=== PATIENT | female | born 1950 | race Caucasian/White ===

== ENCOUNTER 2024-07-30 09:27 | Inpatient (IN) | payer MEDICARE, SELFPAY ==
[2024-07-30] VITALS (18 sets, daily range): BP systolic 93–129; BP diastolic 62–89; PULSE 99–144; RESP 18–60; TEMP 36.4–37.5; O2SAT 89–100; BMI 12.9; BMI 13.0
--- OUTSIDE RECORDS SUMMARY | 2024-07-30 09:29 | XMS_ITS | Clinical Summary ---
Author Organization [employer] [facility] Address [place], [place] [address] Care Team Providers Care Watch Mechanic Name Role Phone Votel, Siddharth Barbour MD Primary Care Provider + Allergies No known active allergies Medications No known medications Immunizations Name Administration Dates Next Due AMB INFLUENZA IIV3 (AGE 65+ YRS) PF (Flu Clinic Only) 03/16/2018 Social History Tobacco Use Types Packs/Day Years Used Date Smoking Tobacco: Never Alcohol Use Standard Drinks/Week Comments No 0 (1 standard drink = 0.6 oz pur e alcohol) Comments Unknown Sex and Gender Information Value Date Recorded Sex Assigned at Not on file 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 Gender Identity Not on file Sexual Orientation Not on file Obstetrics History Last Filed Vital Signs Vital Sign Reading Time Taken Comments Blood Pressure 138/90 02/02/2009 9:35 AM CDT Pulse 77 02/02/2009 9:35 AM CDT Temperature - - Respiratory Rate - - Oxygen Saturation 98% 02/02/2009 9:35 AM CDT Inhaled Oxygen Concentration - - Weight 49.9 kg (110 lb) 02/02/2009 9:35 AM CDT Height - - Body Mass Index - - Plan of Treatment Health Maintenance Due Date Last Done Comments Tdap 01/26/1963 Depression screening for age 12+ 1964 BMI (ht and wt on same day) for age 18+ 01/26/1970 Hepatitis C screening for age 18-79 01/26/1970 Tetanus booster 1972 Colonoscopy through age 75 01/26/1997 Lipids for age 45-75 01/26/1997 Pneumococcal series for age 50+ (1 of 1 - PCV) 01/26/2002 Zoster (shingles) series for age 50+ (1 of 2) 01/26/2002 Mammogram for age 45-75 10/18/2008 10/19/2007, 10/14 DEXA/DXA scan for age 65+ 01/26/2017 COVID-19 vaccine series (1 - 2023-25 season) 2024 Influenza for age 65+ 02/14/2024 03/16/2018 RSV vaccine for adults or pr egnancy (1 - 1-dose 75+ series) 01/26/2027 Procedures Procedure Name Priority Date/Time Associated Diagnosis Comments XR FFDM MAMMO UNI ADDL VIEWS RIGHT (IA) Routine 10/19/2007 3:36 PM CDT Abnormal Mammogram from Last 3 Months or Most Recently Relevant to Health Maintenance Results * XR FFDM MAMMO UNI ADDL VIEWS RIGHT (10/19/2007 3:36 PM CDT) MAMMOGRAM ACR 0 Incomplete: Additional imaging evaluation needed Anatomical Region Laterality Modality BREASTS, Breast Right Right Mammograph y 10/19/2007 3:36 PM CDT Narrative 10/19/2007 3:43 PM CDT ADDITIONAL VIEWS RIGHT BREAST CLINICAL HISTORY: Questionable area of architectural distortion 12:00 position of the right mid-breast on screening study dated 10/15/07. Spot compression CC, spot compression MLO and true lateral views of the right breast were performed. FINDINGS: The examination demonstrates a focal rounded area of increased parenchymal density at the 12:00 position but no architectural distortion is evident. Vascular calcification is seen. CONCLUSION: ACR 0 Incomplete: Additional imaging evaluation needed RECOMMENDATION: Ultrasound of the right breast at the 12:00 position approximately 2.0 cm deep to the nipple. Procedure Note Maciej Buenrostro - 10/19/2007 ADDITIONAL VIEWS RIGHT BREAST CLINICAL HISTORY: Questionable area of architectural distortion 12:00position of the right mid-breast on screening study dated 10/15/07. Spot compression CC, spot compression MLO and true lateral views of theright breast were performed. FINDINGS: The examination demonstrates a focal rounded area of increasedparenchymal density at the 12:00 position but no architectural distortionis evident. Vascular calcification is seen. CONCLUSION: ACR 0 Incomplete: Additional imaging evaluation needed RECOMMENDATION: Ultrasound of the right breast at the 12:00 positionapproximately 2.0 cm deep to the nipple. Siddharth Berkowitz MD MAMMO Final Re sult from Last 3 Months or Most Recently Relevant to Health Maintenance Insurance MEDICARE [place] ONLY Care Teams Watch Mechanic Relationship Specialty Start Date End Date DixonteSiddharth shahid MD [address] [place] [address] PCP - General 10/14/07
--- OUTSIDE RECORDS SUMMARY | 2024-07-30 10:06 | XMS_ITS | Clinical Summary ---
Author Organization [employer] 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
[2024-07-30 10:24] LABS: HCO3 VBG 37 mmol/L (21-28); PCO2 VBG 56 mmHG (40-50); PO2 VBG 35.5 mmHG (25-47); pH VBG 7.424 (7.32-7.43)
[2024-07-30 10:27] LABS: PCR FLU A Negative PCR FLU A (Negative); PCR FLU B Negative PCR FLU B (Negative); PCR RSV Negative PCR RSV (Negative); SARS PCR* Negative SARS-CoV-2 (Negative)
[2024-07-30 10:33] LABS: Basophils Percent Auto 0.2 % (0.0-3.0); Eosinophils Percent Auto 0.6 % (0.0-7.0); Hemoglobin* 9.8 gm/dL (12.0-16.0); Immature Granulocytes Pct Auto 0.9 %; Lymphocytes Percent Auto 6.4 % (20-44); Mean Corpuscular HGB Conc 32 gm/dL (32-36); Mean Corpuscular Hemoglobin 28 pg (26-34); Mean Corpuscular Volume 88 fL (80-100); Monocytes Percent Auto 6.4 % (0.0-11.0); Neutrophils Percent Auto 85.5 % (42.0-72.0); Platelet Count* 640 K/uL (140-440); RDW Coefficient of Variation % 13.6 % (11.5-15.5); Red Blood Count 3.52 m/uL (4.00-5.20); White Blood Count* 11.18 K/uL (4.50-11.00)
[2024-07-30 10:34] LABS: Slide Review Reflex No
[2024-07-30 10:37] LABS: Albumin* 3.7 g/dL (3.3-5.0)
[2024-07-30 10:38] LABS: Chloride* 88 mmol/L (96-114); Sodium* 134 mmol/L (135-149)
[2024-07-30 10:39] LABS: INR 1.06 (0.91-1.10); Prothrombin Time 14.5 Seconds
[2024-07-30 10:40] LABS: Anion Gap 10 mEq/L (7-15); Bilirubin Direct* 0.5 mg/dL (0.0-0.5); Bilirubin Total* 1.1 mg/dL (0.1-1.5); Carbon Dioxide* 36 mmol/L (20-32); Creatinine* 1.1 mg/dL (0.5-1.5); Est. Creatinine Clearance* 24.83; Estimated Glomerular Filt Rate 53 ml/min; Partial Thromboplastin Time* 29 Seconds (23-33)
--- NOTE | 2024-07-30 10:40 | ED.SOB ---
HPI - SOB/Dyspnea General Date Seen: 07/30/24 Chief Complaint: Cough Stated Complaint: cough, diff walking Time Seen by Provider: 07/30/24 09:32 Source: patient and family Mode of arrival: ambulatory Limitations: no limitations History of Present Illness HPI Narrative: Patient is a 74-year-old female who presents here for evaluation of shortness of breath this had been progressive, over the past 2-3 months, she is very hard hearing, and the history is through her family who she lives with. Along with her. Today it just become too short of breath, and they thought that she should be brought into the emergency room to be seen. She is not on chronic oxygen, no past history of any pulmonary or cardiac issues, but has lost approximately 25 lb in the preceding 2-3 months. Has not seen a physician at all the last time she saw 1 was maybe 3 -4 years ago, and has no primary care physician. Denies any hemoptysis, chest pain, leg swelling, wheezing. She has not had a history of smoking, no history of malignancy, she is on no medications and has no known allergies. She admits to me that she does not really have an appetite has not really eaten anything at all today, or yesterday. Is drinking fluids. No history of fevers chills or sweats viral URI type symptoms that may be superimposed on this. Related Data Home oxygen amount: none Home Medications ?Medication ?Instructions ?Recorded ?Confirmed No Known Home Medications 07/30/24 07/30/24 Allergies Allergy/AdvReac Type Severity Reaction Status Date / Time No Known Drug Allergies Allergy Verified 07/30/24 10:41 Review of Systems Status of ROS: Reports: 10 or more systems reviewed and unremarkable except as noted in History and below Exam Narrative: Exam Narrative: On examination in room 8, she is in no apparent distress she is somewhat hard to understand because of her edentulous nature. Very cachectic, Pupils equal round reactive to light there is no scleral icterus redness TMs are normal oropharynx normal there is no adenopathy anterior posterior chains, JVP flat, chest shows obvious scoliosis convex left. No tenderness to palpation, she has no dullness to percussion, or positive tactile fremitus no signs of respiratory distress, she is on 2-3 L currently of oxygen. Heart sounds no clicks murmurs or gallops, otherwise normal S1-S2, her abdomen is soft and obese, scars from previous lower midline incision she tells me is from a twisted bowel when she was young. She has another incision lower down more of a Pfannenstiel type lower legs show no pitting edema swelling she is neurologically intact moving her upper lower extremities, cranial nerves 3-12 are otherwise normal. Skin reveals no petechiae rashes she has normal pulses. Const: Vital Signs, click to edit/add: Vital Signs - 24 hr 07/30/24 09:31 07/30/24 09:47 07/30/24 10:00 Temperature 98.0 F Pulse Rate 118 H Pulse Rate [Pulse Oximeter] 144 H Respiratory Rate 60 H 32 H Blood Pressure [Ri ght Upper Arm] 114/62 Pulse Oximetry 89 98 99 Oxygen Delivery Me thod Room Air Nasal Cannula Nasal Cannula Oxygen Flow Rate 3 2 07/30/24 10:15 07/30/24 10:19 07/30/24 10:19 Temperature Pulse Rate 111 H Pulse Rate [Pulse Oximeter] Respiratory Rate Blood Pressure [Ri ght Upper Arm] Pulse Oximetry 97 95 Oxygen Delivery Me thod Nasal Cannula Nasal Cannula Nasal Cannula Oxygen Flow Rate 2 2 2 07/30/24 10:32 07/30/24 10:45 07/30/24 11:16 Temperature Pulse Rate 105 H 122 H Pulse Rate [Pulse Oximeter] Respiratory Rate Blood Pressure [Ri ght Upper Arm] Pulse Oximetry 98 90 Oxygen Delivery Me thod Nasal Cannula Nasal Cannula Oxygen Flow Rate 2 2 07/30/24 11:20 07/30/24 11:21 07/30/24 11:54 Temperature Pulse Rate Pulse Rate [Pulse Oximeter] 124 H 112 H 100 Respiratory Rate 30 H 24 Blood Pressure [Ri ght Upper Arm] Pulse Oximetry 95 95 100 Oxygen Delivery Me thod Nasal Cannula Nasal Cannula Nasal Cannula Oxygen Flow Rate 2 2 1 Course Course ED Course: I went back in and discussed with her and her family, after discussion she has vehemently DNR DNI, and this is agreed upon by her family also. She our ever will take treatment, and reluctantly somewhat to come into the hospital. I recommend antibiotics, nebulizers, potassium replacement, IV fluids, dietary consult, in further workup for a possible malignancy, along with nutritional concerns. She does not have a smoking history, no history of severe lung disease or exposure, and does not keep birds or any other possibilities a lease locally, no significant travel history also. I think it is reasonable and appropriate for her to stay here in [place]. I discussed this with Dr. Johnson from [facility] Vital Signs Vital signs: Initial Vital Signs Temperature 98.0 F 07/30/24 09:31 Temperature Source Temporal Artery Scan 07/30/24 09:31 Pulse Rate 144 H 07/30/24 09:31 Respiratory Rate 60 H 07/30/24 09:31 Blood Pressure 114/62 07/30/24 09:31 Blood Pressure Mean 79 07/30/24 09:31 Pulse Oximetry 89 07/30/24 09:31 Oxygen Delivery Method Room Air 07/30/24 09:31 Vital Signs Temperature 98.0 F 07/30/24 09:31 Pulse Rate 144 H 07/30/24 09:31 Respiratory Rate 60 H 07/30/24 09:31 Blood Pressure 114/62 07/30/24 09:31 Pulse Oximetry 89 07/30/24 09:31 Oxygen Delivery Method Room Air 07/30/24 09:31 Temperature 98.0 F 07/30/24 09:31 Pulse Rate 100 07/30/24 11:54 Respiratory Rate 24 07/30/24 11:54 Blood Pressure 114/62 07/30/24 09:31 Pulse Oximetry 100 07/30/24 11:54 Oxygen Delivery Method Nasal Cannula 07/30/24 11:54 Oxygen Flow Rate 1 07/30/24 11:54 Medications Administered Medications: Discontinued Medications Generic Name Dose Route Start Last Admin Trade Name Freq PRN Reason Stop Dose Admin Albuterol/Ipratropium 1 neb 07/30/24 11:41 07/30/24 11:49 Iprat-Albut 0.5-2.5 Mg/3 Ml Neb IH 07/30/24 11:42 1 neb ONCE ONE Administration Sodium Chloride 1,000 mls @ 1,000 mls/hr 07/30/24 11:00 07/30/24 11:18 0.9 % Sodium Chloride 1000 Ml IV 07/30/24 11:59 1,000 mls/hr .Q1H ZANE Administration Potassium Chloride 10 meq in 100 mls @ 100 mls/hr 07/30/24 10:57 07/30/24 11:18 Potassium Chloride IVPB 07/30/24 11:56 100 mls/hr ONCE ONE Administration Piperacillin Sod/Tazobactam 100 mls @ 200 mls/hr 07/30/24 11:41 07/30/24 11:48 Sod 3.375 gm/ Sodium Chloride IVPB 07/30/24 11:42 200 mls/hr ONCE ONE Administration Potassium Chloride 20 meq 07/30/24 10:57 07/30/24 11:18 Potassium Chloride 10 Meq Capsule Er PO 07/30/24 10:58 20 meq ONCE ONE Administration MDM - SOB/Dyspnea MDM Narrative Medical decision making narrative: Life-threatening differential diagnosis includes occluded COPD exacerbation, pulmonary edema, acute coronary syndromes, pulmonary embolism, pneumonia, and pneumothorax. Other differential diagnosis considerations include asthma, bronchitis as well as other etiologies I think the likelihood of malignancy is very high and this lady, we will do some labs, I will also do a chest x-ray, I reviewed the chest x-ray which shows multiple right-sided areas consistent with malignancy, she will need a CT scan of her chest once we get her creatinine back, we will do it with contrast Differential Diagnosis Differential diagnosis: Likely acute exacerbation of chronic obstructive airways disease, congestive heart failure, community acquired pneumonia, asthma with exacerbation and pulmonary embolism Medical Records Attestation: I reviewed the patient's medical records. Lab Data Attestation: I reviewed the patient's lab results. Labs: Lab Results 07/30/24 07/30/24 Range/Units 09:42 10:10 WBC 11.18 H (4.50-11.00) K/uL RBC 3.52 L (4.00-5.20) m/uL Hgb 9.8 L (12.0-16.0) gm/dL Hct 31.0 L (33.0-51.0) % MCV 88 (80-100) fL MCH 28 (26-34) pg MCHC 32 (32-36) gm/dL RDW Coeff of Delphine 13.6 (11.5-15.5) % Plt Count 640 H (140-440) K/uL Neut % (Auto) 85.5 H (42.0-72.0) % Lymph % (Auto) 6.4 L (20-44) % Morgan % (Auto) 6.4 (0.0-11.0) % Eos % (Auto) 0.6 (0.0-7.0) % Baso % (Auto) 0.2 (0.0-3.0) % Neut # (Auto) 9.60 H (1.7-7.0) K/uL Lymph # (Auto) 0.70 L (0.90-2.90) K/uL Morgan # (Auto) 0.70 (0.00-0.90) K/UL Eos # (Auto) 0.10 (0.00-0.50) K/uL Baso # (Auto) 0.00 (0.00-0.30) K/uL Abs Immat Gran (auto) 0.10 (0.00-0.30) K/uL Imm/Tot Granulo (auto) 0.9 % INR 1.06 (0.91-1.10) APTT 29 (23-33) Seconds D-Dimer Quant (PE/DVT) 2.91 H (0.00-0.50) ug/ml VBG pH 7.424 (7.32-7.43) VBG pCO2 56 H (40-50) mmHG VBG pO2 35.5 (25-47) mmHG VBG HCO3 37 H (21-28) mmol/L Sodium 134 L (135-149) mmol/L Potassium 2.9 L* (3.6-5.1) mmol/L Chloride 88 L (96-114) mmol/L Carbon Dioxide 36 H (20-32) mmol/L Anion Gap 10 (7-15) mEq/L BUN 19 (7-30) mg/dL Creatinine 1.1 (0.5-1.5) mg/dL Estimated Creat Clear 24.83 Estimated GFR 53 ml/min Glucose 117 H (60-115) mg/dL Calcium 8.6 (8.4-10.6) mg/dL Total Bilirubin 1.1 (0.1-1.5) mg/dL Direct Bilirubin 0.5 (0.0-0.5) mg/dL AST 21 (12-35) U/L ALT 10 (4-35) U/L Alkaline Phosphatase 150 (40-150) U/L Troponin I < 0.01 L (0.01-0.04) ng/mL NT-Pro-B Natriuret Pep 828 pg/mL Total Protein 7.8 (6.0-8.3) g/dL Albumin 3.7 (3.3-5.0) g/dL SARS-CoV-2 (PCR) Negative SARS-CoV-2 (Negative) Influenza Type A (PCR) Negative PCR FLU A (Negative) Influenza Type B (PCR) Negative PCR FLU B (Negative) RSV (PCR) Negative PCR RSV (Negative) Imaging Data Chest x-ray: Attestation: I have reviewed the pertinent imaging results. My impression: Severe emphysematous changes, questionable right hilar mass Radiologist's impression: [address] [address] Diagnostic Imaging Report Patient: Shanita Little MR#: [id number] : 1950 Acct:[id number] Loc: ED Service Date: 07/30/[address]: Ordering Physician: Eusebio Vaughn M.D. Date of Service: 07/30/24 Procedure(s): XR chest 2V Accession Number(s): [id number] cc: Eusebio Vaughn M.D.; Siddharth Berkowitz M.D.~ For Patients: As a result of the Cures Act, medical imaging exams and procedure reports are released immediately into your electronic medical record. You may view this report before your referring provider. If you have questions, please contact your health care provider. INDICATION: Short of breath and weakness COMPARISON: None. TECHNIQUE: PA and lateral 2 view chest. FINDINGS: Lung volumes are normal without substantial hyperinflation. Cystic versus bronchiectatic change throughout. There are peribronchiolar and patchy opacities. No large focal consolidation. No pulmonary edema. No pleural effusion. No pneumothorax. No pneumomediastinum. Normal cardiomediastinal silhouette. Bones: Normal for age. IMPRESSION: Suspect emphysema and bronchitis/bronchopneumonia. Underlying other causes of bronchiectasis or cystic lung disease can also be considered. Dictated by Amie Swann MD @ 07/30/2024 10:47:54 AM (Electronically Signed)[address] [address] Diagnostic Imaging Report Patient: Shanita Little MR#: [id number] : 1950 Acct:[id number] Loc: ED Service Date: 07/30/[address]: Ordering Physician: Eusebio Vaughn M.D. Date of Service: 07/30/24 Procedure(s): CT angio chest PE protocol Accession Number(s): [id number] cc: Eusebio Vaughn M.D.; Siddharth Berkowitz M.D.~ For Patients: As a result of the Cures Act, medical imaging exams and procedure reports are released immediately into your electronic medical record. You may view this report before your referring provider. If you have questions, please contact your health care provider. INDICATION: Short of breath. COMPARISON: Radiograph 07/30/2024 TECHNIQUE: CT angiogram chest with contrast, pulmonary embolism protocol. Multiplanar axial, coronal, and sagittal reformats are included. MIP images to improve detection of pulmonary emboli are included. Intravenous contrast: 95 mL Isovue 370 FINDINGS: PE: Well-timed contrast bolus. No pulmonary emboli. Normal caliber main pulmonary artery. Normal sized right heart chambers. No reflux of contrast below the diaphragm. Airway: Distal endotracheal debris. There is diffuse bronchiectasis with multifocal bronchial plugging and multiple finger in glove like endobronchial opacities. Lungs: Multifocal patchy opacities without a dominant nodule or mass. There is irregular cystic change at the right lung apex with a thick irregular wall and significant adjacent bronchiectasis. Appears to be saccular end-stage bronchiectasis in the apex. No focal consolidation/large pneumonia.. No significant emphysema. No pulmonary edema. Pleura: No pleural effusion. No pneumothorax. Lymph nodes: No thoracic adenopathy. Mediastinum: No pneumomediastinum. No mass. Heart and great vessels: No pericardial effusion. Normal cardiac chamber size. Scattered atherosclerotic plaques. No aortic aneurysm. Chest wall: Very little subcutaneous or visceral fat. Upper abdomen: There is a 1.7 centimeter arterially hyperenhancing lesion in the dome of the right diaphragm. There is a smaller similar lesion that measures 9 millimeters in the midportion of the right diaphragm. There is a low-density/cysts in the central liver lesion that measures 1.6 centimeters. There is an arterially hyperenhancing subcapsular lesion in the right inferior lobe of the liver that measures 0.5 cm. Dystrophic right adrenal calcification. Bones: No fractures. No focal bone lesions. IMPRESSION: 1. Severe diffuse bronchiectasis. Multifocal severe bronchial plugging with adjacent findings of bronchitis/bronchopneumonia. Significant recurrent aspiration or Aspergillus should be considered. 2. There is an irregular cyst in the apex of the right lung that appears to be end-stage saccular bronchiectasis. Cyst wall is relatively thickened / irregular. Could consider a PET-CT to evaluate for malignancy. 3. No pulmonary embolism. 4. There several arterially hyperenhancing lesions in the liver. Favor flash filling hemangiomas. Further imaging workup (MR abdomen without and with IV contrast liver mass protocol) should be based on the patient`s risk for primary or metastatic pulmonary malignancy. Please note that all CT scans at this facility use dose modulation, iterative reconstruction, and/or weight-based dosing when appropriate to reduce radiation dose to as low as reasonably achievable. Dictated by mAie Swann MD @ 07/30/2024 11:34:27 AM (Electronically Signed) ECG Data Attestation: I personally reviewed and interpreted this ECG as follows: ECG interpretation date: 07/30/24 Prior ECG tracings: not available for review Interpretation: EKG shows sinus tachycardia with a ventricular rate of 114, ST wave depression is noted laterally and inferiorly, possible ischemia, QRS 64 milliseconds QT 332 QTC is 457 Assessment: Sinus tachycardia with occasional PACs, ST wave abnormalities. Abnormal EKG Discharge Plan Discharge Clinical Impression: Hypoxia, Hypokalemia, Dehydration, Anemia, Bronchopneumonia Patient Disposition: Admitted As Inpatient Activity Level: Light activity
[2024-07-30 10:41] LABS: Alanine Aminotransferase* 10 U/L (4-35); Alkaline Phosphatase* 150 U/L (40-150); Aspartate Amino Transferase* 21 U/L (12-35); Blood Urea Nitrogen* 19 mg/dL (7-30); Calcium* 8.6 mg/dL (8.4-10.6); Glucose* 117 mg/dL (60-115); Total Protein* 7.8 g/dL (6.0-8.3)
[2024-07-30 10:43] LABS: D Dimer Quantitative* 2.91 ug/ml (0.00-0.50)
[2024-07-30 10:54] LABS: NT Pro B Type NatriureticPept* 828 pg/mL; Potassium* 2.9 mmol/L (3.6-5.1); Troponin I* < 0.01 ng/mL (0.01-0.04)
[2024-07-30] MEDS: POTASSIUM CHLORIDE 10 MEQ CAPSULE ER 20 MEQ PO (11:18)
[2024-07-30] MEDS: POTASSIUM CHLORIDE 10 MEQ/100 ML PIGGYBACK 100 MEQ IVPB (11:18)
[2024-07-30] MEDS: 0.9 % SODIUM CHLORIDE 1000 ml 1,000 ML IV (11:18)
[2024-07-30] MEDS: PIPERACILLIN/TAZOBACTAM 3.375 GM in 0.9 % SODIUM CHLORIDE Mini-bag 100 ML IVPB (11:48)
[2024-07-30] MEDS: IPRAT-ALBUT 0.5-2.5 MG/3 ML NEB 1 NEB IH (11:49)
[2024-07-30 13:27] LABS: Magnesium* 1.8 mg/dL (1.5-2.6)
[2024-07-30 13:44] LABS: Procalcitonin* 0.19 ng/mL (<0.50)
[2024-07-30 13:58] LABS: C Reactive Protein* 15.5 mg/dL (0.5-1.0)
[2024-07-30] MEDS: guaiFENesin 100 MG/ML CUP PO (13:59)
[2024-07-30] MEDS: predniSONE 20 MG TABLET 40 MG PO (14:06)
[2024-07-30] MEDS: cefTRIAXone 2 GM in 0.9 % SODIUM CHLORIDE Mini-bag 100 ML IVPB (14:06)
[2024-07-30] MEDS: POTASSIUM BICARB 25 MEQ EFFERVESCENT TAB PO ×3 (14:06→17:45)
[2024-07-30] MEDS: DOXYCYCLINE HYCLATE 100 MG PO ×2 (14:07→21:23)
--- NOTE | 2024-07-30 15:33 | PM.IMHP1 ---
Hospitalist- H&P: HPI History of Present Illness Time Seen by Provider: 12:30 Date Seen: 07/30/24 Chief complaint: cough, diff walking Narrative: Shanita Little is a 74 year old female who hasn't been to the doctor in many years who is brought in by her family for cough, illness for 1 month, shortness of breath, weakness, anorexia, and weight loss. She lives with her , her son and his daughter. She is independent and had been going out to shop, occassionally driving herself up until a few months ago. She has always been thin, about 70-100 lbs, according to her son, Humphrey, who is with her today, but she started eating less and has lost about 25 lbs over the last few months. About a month ago she came down with something that caused a wet, junky cough. Other people in the house were sick with something similar, but her illness never went away. She continued to cough and lose weight. She stopped going to the store because of weakness. She also notes pain in her anterior right leg for a few months. She is a lifelong nonsmoker. She denies hemoptysis or CP. She has no personal or family h/o cancer. Review of Systems Status of ROS: Reports: 10 or more systems reviewed and unremarkable except as noted in History and below PFSH PFS Surgical History (Updated 07/30/24 @ 15:56 by Nimo Johnson MD) History of ankle surgery ?Z98.890 - Other specified postprocedural states (ICD-10) Family History (Updated 07/30/24 @ 16:21 by Nimo Johnson MD) Father Diabetes Son Diabetes Social History (Updated 07/30/24 @ 15:58 by Nimo Johnson MD) Narrative: Lives with son and granddaughter, Vignesh. Lifelong nonsmoker. 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 DNR/DNI What is your current living situation?: I presently have a place to live Problems where you live: no known problems Problems where you live details: na In the past 12 months, utilities in danger of being shut off: no In past 12 months, lack of transportation kept you from medical appts, meetings, work, or getting things needed for daily living: no In the past 12 mos, have been you worried that your food would run out before you had money to buy more?: never true In the past 12 mos, the food you bought just didn't last and you didn't have money to buy more?: never true Highest level of school completed/degree received: high school graduate Smoking Status: Former smoker How often do you have a drink containing alcohol: never AUDIT-C Alcohol total score: 0 Non-prescribed substance use: denies use How often does anyone, including family, friends and others, physically hurt you: never How often does anyone, including family, friends and others, insult or talk down to you: never How often does anyone, including family, friends and others, threaten you with harm: never How often does anyone, including family, friends and others, scream or curse at you: never service: No Meds Home Medications and Allergies Home Medications ?Medication ?Instructions ?Recorded ?Confirmed ?Type No Known Home Medications 07/30/24 07/30/24 History Allergies Allergy/AdvReac Type Severity Reaction Status Date / Time No Known Drug Allergies Allergy Verified 07/30/24 10:41 Exam Narrative: Exam Narrative: General: No acute distress. Awake alert oriented x3. Extremely cachectic, chronically ill-appearing. Face is gaunt, skin is ashen. HEENT: Normocephalic atraumatic, pupils equally round and reactive to light and accommodation. Oropharynx clear. Mucous membranes are slightly dry. No cervical lymphadenopathy, thyromegaly or carotid bruits. No JVD. Cardiovascular: Regular rate and rhythm. No murmurs, gallops, or rubs. Chest: No increased work of breathing. Coarse with crackles in the right lower lung field. Abdomen: Bowel sounds present. Soft, nondistended, nontender. No hepatosplenomegaly or masses. Extremities: Severe generalized muscle wasting. No edema, no cyanosis or clubbing. Tender to palpation at the right SI joint which reproduces her right anterior thigh pain. Skin: As above. No jaundice, no pallor, no rashes. Neuro: Grossly intact. No focal deficits. Const: Vital Signs, click to edit/add: Vital Signs - 24 hr 07/30/24 09:31 07/30/24 09:47 07/30/24 10:00 Temperature 98.0 F Pulse Rate 118 H Pulse Rate [Left P ulse Oximeter] Pulse Rate [Pulse Oximeter] 144 H Respiratory Rate 60 H 32 H Blood Pressure [Le ft Arm] Blood Pressure [Ri ght Upper Arm] 114/62 Pulse Oximetry 89 98 99 Oxygen Delivery Me thod Room Air Nasal Cannula Nasal Cannula Oxygen Flow Rate 3 2 07/30/24 10:15 07/30/24 10:19 07/30/24 10:19 Temperature Pulse Rate 111 H Pulse Rate [Left P ulse Oximeter] Pulse Rate [Pulse Oximeter] Respiratory Rate Blood Pressure [Le ft Arm] Blood Pressure [Ri ght Upper Arm] Pulse Oximetry 97 95 Oxygen Delivery Me thod Nasal Cannula Nasal Cannula Nasal Cannula Oxygen Flow Rate 2 2 2 07/30/24 10:32 07/30/24 10:45 07/30/24 11:16 Temperature Pulse Rate 105 H 122 H Pulse Rate [Left P ulse Oximeter] Pulse Rate [Pulse Oximeter] Respiratory Rate Blood Pressure [Le ft Arm] Blood Pressure [Ri ght Upper Arm] Pulse Oximetry 98 90 Oxygen Delivery Me thod Nasal Cannula Nasal Cannula Oxygen Flow Rate 2 2 07/30/24 11:20 07/30/24 11:21 07/30/24 11:54 Temperature Pulse Rate Pulse Rate [Left P ulse Oximeter] Pulse Rate [Pulse Oximeter] 124 H 112 H 100 Respiratory Rate 30 H 24 Blood Pressure [Le ft Arm] Blood Pressure [Ri ght Upper Arm] Pulse Oximetry 95 95 100 Oxygen Delivery Me thod Nasal Cannula Nasal Cannula Nasal Cannula Oxygen Flow Rate 2 2 1 07/30/24 12:14 07/30/24 12:58 07/30/24 12:59 Temperature 98.3 F Pulse Rate Pulse Rate [Left P ulse Oximeter] 124 H Pulse Rate [Pulse Oximeter] 110 H Respiratory Rate 26 H 26 H Blood Pressure [Le ft Arm] 129/89 Blood Pressure [Ri ght Upper Arm] Pulse Oximetry 98 97 98 Oxygen Delivery Me thod Nasal Cannula Nasal Cannula Oxygen Flow Rate 1 2 07/30/24 13:08 07/30/24 14:29 Temperature Pulse Rate 100 Pulse Rate [Left P ulse Oximeter] Pulse Rate [Pulse Oximeter] Respiratory Rate 36 H Blood Pressure [Le ft Arm] Blood Pressure [Ri ght Upper Arm] Pulse Oximetry 97 Oxygen Delivery Me thod Room Air Oxygen Flow Rate 2 Hospitalist - H&P: Result Labs Labs: Short CBC 07/30/24 Range/Units 10:10 WBC 11.18 H (4.50-11.00) K/uL Hgb 9.8 L (12.0-16.0) gm/dL Hct 31.0 L (33.0-51.0) % Plt Count 640 H (140-440) K/uL BMP 07/30/24 10:10 Sodium 134 L Potassium 2.9 L* Chloride 88 L Carbon Dioxide 36 H BUN 19 Creatinine 1.1 Glucose 117 H Calcium 8.6 Cardiac Enzymes 07/30/24 Range/Units 10:10 Troponin I < 0.01 L (0.01-0.04) ng/mL Liver Function 07/30/24 Range/Units 10:10 Total Bilirubin 1.1 (0.1-1.5) mg/dL Direct Bilirubin 0.5 (0.0-0.5) mg/dL AST 21 (12-35) U/L ALT 10 (4-35) U/L Alkaline Phosphatase 150 (40-150) U/L Albumin 3.7 (3.3-5.0) g/dL 07/30/2024 EKG: Sinus tachycardia with premature atrial complexes, heart rate 114, biatrial enlargement, ST and T-wave abnormalities in the inferior and anterolateral leads. Ordering Physician: Eusebio Vaughn M.D. Date of Service: 07/30/24 Procedure(s): XR chest 2V Accession Number(s): [id number] cc: Eusebio Vaughn M.D.; Siddharth Berkowitz M.D.~ For Patients: As a result of the Century Cures Act, medical imaging exams and procedure reports are released immediately into your electronic medical record. You may view this report before your referring provider. If you have questions, please contact your health care provider. INDICATION: Short of breath and weakness COMPARISON: None. TECHNIQUE: PA and lateral 2 view chest. FINDINGS: Lung volumes are normal without substantial hyperinflation. Cystic versus bronchiectatic change throughout. There are peribronchiolar and patchy opacities. No large focal consolidation. No pulmonary edema. No pleural effusion. No pneumothorax. No pneumomediastinum. Normal cardiomediastinal silhouette. Bones: Normal for age. IMPRESSION: Suspect emphysema and bronchitis/bronchopneumonia. Underlying other causes of bronchiectasis or cystic lung disease can also be considered. Dictated by Amie Swann MD @ 07/30/2024 10:47:54 AM (Electronically Signed) Ordering Physician: Eusebio Vaughn M.D. Date of Service: 07/30/24 Procedure(s): CT angio chest PE protocol Accession Number(s): [id number] cc: Eusebio Vaughn M.D.; Siddharth Berkowitz M.D.~ For Patients: As a result of the Cures Act, medical imaging exams and procedure reports are released immediately into your electronic medical record. You may view this report before your referring provider. If you have questions, please contact your health care provider. INDICATION: Short of breath. COMPARISON: Radiograph 07/30/2024 TECHNIQUE: CT angiogram chest with contrast, pulmonary embolism protocol. Multiplanar axial, coronal, and sagittal reformats are included. MIP images to improve detection of pulmonary emboli are included. Intravenous contrast: 95 mL Isovue 370 FINDINGS: PE: Well-timed contrast bolus. No pulmonary emboli. Normal caliber main pulmonary artery. Normal sized right heart chambers. No reflux of contrast below the diaphragm. Airway: Distal endotracheal debris. There is diffuse bronchiectasis with multifocal bronchial plugging and multiple finger in glove like endobronchial opacities. Lungs: Multifocal patchy opacities without a dominant nodule or mass. There is irregular cystic change at the right lung apex with a thick irregular wall and significant adjacent bronchiectasis. Appears to be saccular end-stage bronchiectasis in the apex. No focal consolidation/large pneumonia.. No significant emphysema. No pulmonary edema. Pleura: No pleural effusion. No pneumothorax. Lymph nodes: No thoracic adenopathy. Mediastinum: No pneumomediastinum. No mass. Heart and great vessels: No pericardial effusion. Normal cardiac chamber size. Scattered atherosclerotic plaques. No aortic aneurysm. Chest wall: Very little subcutaneous or visceral fat. Upper abdomen: There is a 1.7 centimeter arterially hyperenhancing lesion in the dome of the right diaphragm. There is a smaller similar lesion that measures 9 millimeters in the midportion of the right diaphragm. There is a low-density/cysts in the central liver lesion that measures 1.6 centimeters. There is an arterially hyperenhancing subcapsular lesion in the right inferior lobe of the liver that measures 0.5 cm. Dystrophic right adrenal calcification. Bones: No fractures. No focal bone lesions. IMPRESSION: 1. Severe diffuse bronchiectasis. Multifocal severe bronchial plugging with adjacent findings of bronchitis/bronchopneumonia. Significant recurrent aspiration or Aspergillus should be considered. 2. There is an irregular cyst in the apex of the right lung that appears to be end-stage saccular bronchiectasis. Cyst wall is relatively thickened / irregular. Could consider a PET-CT to evaluate for malignancy. 3. No pulmonary embolism. 4. There several arterially hyperenhancing lesions in the liver. Favor flash filling hemangiomas. Further imaging workup (MR abdomen without and with IV contrast liver mass protocol) should be based on the patient`s risk for primary or metastatic pulmonary malignancy. Please note that all CT scans at this facility use dose modulation, iterative reconstruction, and/or weight-based dosing when appropriate to reduce radiation dose to as low as reasonably achievable. Dictated by Amie Swann MD @ 07/30/2024 11:34:27 AM (Electronically Signed) Assessment and Plan Assessment and plan (1) Acute hypoxic respiratory failure: Problem comment: - hypoxic, slightly hypercapnic - multifactorial: bronchopneumonia and suspect COPD - Continue supplemental oxygen, monitor for worsening hypercapnia. Status: Acute (2) Bronchopneumonia: Problem comment: - CT lung findings: Severe diffuse bronchiectasis. Multifocal severe bronchial plugging with adjacent findings of bronchitis/bronchopneumonia. Significant recurrent aspiration or Aspergillus should be considered. - Start with IV antibiotics and steroids. If worsening condition, consider antifungals or transfer for bronchoscopy Status: Acute (3) COPD (chronic obstructive pulmonary disease): Problem comment: - oral steroid burst - outpatient PFTs when done with antibiotics. Will likely need reimaging at that time also Status: Suspected (4) Hypokalemia: Problem comment: - oral supplementation - recheck in am - Mg level wnl Status: Acute (5) Anemia: Problem comment: - normocytic - check iron, B12, folate levels - may need to consider outpatient w/u with colonoscopy and EGD. Consider EGD if melena or acute drop in Hgb Status: Acute (6) Cachexia: Problem comment: - suspect underlying chronic issue - will need more work up of CT findings: PET CT, CT abd/pelvis (will do this in a few days since patient just got IVP dye for CTA), and MRI RUQ - nutrition consult - Nutrional supplementation Status: Acute (7) Lung cyst: Problem comment: CT lung findings: There is an irregular cyst in the apex of the right lung that appears to be end-stage saccular bronchiectasis. Cyst wall is relatively thickened / irregular. Could consider a PET-CT to evaluate for malignancy. Status: Acute (8) Liver lesion: Problem comment: CT chest: hyperenhancing lesions in the liver. Favor flash filling hemangiomas. Further imaging workup (MR abdomen without and with IV contrast liver mass protocol) should be based on the patient`s risk for primary or metastatic pulmonary malignancy. Status: Acute (9) CKD (chronic kidney disease): Problem comment: - suspect CKD, stage unknown at this time. Might be acute renal failure or acute on chronic Status: Suspected (10) Weight loss: Problem comment: As above Status: Acute (11) Elevated brain natriuretic peptide (BNP) level: Problem comment: with dyspnea, hypoxia and cachexia, will check ECHO Status: Acute (12) Severe protein-calorie malnutrition: Status: Acute Total Time Spent Total Time Spent: Time spent: Today I spent 75 minutes seeing the patient, discussing the patient with ER staff, reviewing Expanse and EPIC notes/diagnostics, discussing the care plan with our care team that includes social work, PT/OT, pharmacy, RT, residential and documenting my impressions and plan in the medical record. MEDICAL NECESSITY FOR HOSPITALIZATION Anticipated midnights in the hospital: 3 Admitting diagnosis: Pneumonia, acute hypoxic and hypercapnic respiratory failure, suspect COPD Risk of morbidity and mortality: high Acuity is characterized as high and reflected in: Complicating factors include severe cachexia and protein calorie malnutrition and significant hypokalemia This patient will require hospital services as outlined in the assessment and plan in order to stabilize and be safely discharged to a lower level of care. Because of the risk and acuity as described above, this patient cannot be managed at a lower level of care. LENGTH OF STAY: 3 IP ? Anticipated LOS>2 midnights due to acuity of clinical presentation requiring inpatient level of care
--- NOTE | 2024-07-30 15:43 | RESP.RT ---
Pt with strong spontaneous cough. It is productive which she is swallowing. Efforts are poor with aerobika, weak expiratory effort. Encourage cough and deep breathing.
--- NOTE | 2024-07-30 15:50 | PC.NURSE ---
end of shift pt has been pleasant, no pain. Hr ST, LS are diminished she is SOB with any activity. IV is patent. she is up with 1 assist to BSC, because of SOB with activity. family is here and loving and caring.
[2024-07-30] MEDS: LIDOCAINE 5% PATCH 1 PATCH TRANSDERMA (21:22)
[2024-07-30] MEDS: SODIUM CHLORIDE 0.9 % (FLUSH) 10 ML SYRINGE 5 ML IVF (21:25)
--- NOTE | 2024-07-30 23:38 | PC.NURSE ---
Pt alert, oriented and vitally stable. Pt is hard of hearing and needs occasional restating. Pt on 1 L O2 while in bed, 2L o2 while moving, tolerates well. Pt Up via SBA, tolerates well. Pt in bed, appears to be resting, call light within reach.
[2024-07-31] VITALS (10 sets, daily range): BP systolic 93–98; BP diastolic 55–60; PULSE 62–91; RESP 18–30; TEMP 36.7–36.8; O2SAT 94–99
[2024-07-31 05:45] LABS: Iron* 49 ug/dL (37-170); Percent Iron Saturation 15 % (20-50); Total Iron Binding Capacity 333 ug/dL (265-497)
[2024-07-31 06:16] LABS: Vitamin B12* > 1000 pg/mL (243-894)
[2024-07-31 06:24] LABS: HCO3 VBG 35 mmol/L (21-28); PCO2 VBG 50 mmHG (40-50); PO2 VBG 43.9 mmHG (25-47); pH VBG 7.459 (7.32-7.43)
[2024-07-31 06:32] LABS: Basophils Percent Auto 0.1 % (0.0-3.0); Hematocrit 28.1 % (33.0-51.0); Immature Granulocytes Pct Auto 2.5 %; Lymphocytes Percent Auto 5.8 % (20-44); Mean Corpuscular HGB Conc 32 gm/dL (32-36); Mean Corpuscular Hemoglobin 28 pg (26-34); Mean Corpuscular Volume 87 fL (80-100); Monocytes Percent Auto 2.2 % (0.0-11.0); Neutrophils Percent Auto 89.4 % (42.0-72.0); Platelet Count* 621 K/uL (140-440); RDW Coefficient of Variation % 13.6 % (11.5-15.5); Red Blood Count 3.22 m/uL (4.00-5.20); White Blood Count* 11.68 K/uL (4.50-11.00)
[2024-07-31 06:51] LABS: Chloride* 93 mmol/L (96-114); Potassium* 4.2 mmol/L (3.6-5.1); Sodium* 133 mmol/L (135-149)
[2024-07-31 06:54] LABS: Anion Gap 6 mEq/L (7-15); Blood Urea Nitrogen* 23 mg/dL (7-30); Carbon Dioxide* 34 mmol/L (20-32); Est. Creatinine Clearance* 27.93; Estimated Glomerular Filt Rate 60 ml/min; Glucose* 116 mg/dL (60-115)
[2024-07-31 06:55] LABS: Calcium* 8.4 mg/dL (8.4-10.6)
[2024-07-31 07:07] LABS: Slide Review Reflex No
[2024-07-31 07:08] LABS: Iron* 51 ug/dL (37-170)
[2024-07-31 07:12] LABS: C Reactive Protein* 12.8 mg/dL (0.5-1.0)
[2024-07-31 07:17] LABS: Percent Iron Saturation 30 % (20-50); Total Iron Binding Capacity 172 ug/dL (265-497)
--- NOTE | 2024-07-31 07:28 | PC.NURSE ---
End of shift [id number] - RN took over pt care at approximately 2300. Pt alert, oriented, cooperative. Up with standby assistance. Continent of bladder during shift. Tolerating O2 via nasal cannula, titrated down from 1L per MD order to maintain saturation. Pt observed to sleep/ Appears to be resting in bed with call light within reach.
[2024-07-31] MEDS: predniSONE 20 MG TABLET 40 MG PO (07:44)
[2024-07-31 08:01] LABS: Vitamin B12* > 1000 pg/mL (243-894)
[2024-07-31] MEDS: DOXYCYCLINE HYCLATE 100 MG PO ×2 (08:39→20:08)
[2024-07-31] MEDS: SODIUM CHLORIDE 0.9 % (FLUSH) 10 ML SYRINGE 5 ML IVF ×2 (08:39→20:08)
[2024-07-31] MEDS: cefTRIAXone 2 GM in 0.9 % SODIUM CHLORIDE Mini-bag 100 ML IVPB (12:48)
--- NOTE | 2024-07-31 15:29 | PC.NURSE ---
End of Shift: Patient pleasant and cooperative, A&O. VSS, afebrile. SpO2 maintained above 90% this shift. Patient is now on RA. Patient refused breakfast this morning. SBA.
--- NOTE | 2024-07-31 16:29 | PM.IMPN1 ---
Progress Note: A&P Assessment and plan (1) Acute hypoxic respiratory failure: Problem details: - hypoxic, slightly hypercapnic - multifactorial: bronchopneumonia and suspect COPD - attempting to wean oxygen today Status: Acute (2) Bronchopneumonia: Problem details: - CT lung findings: Severe diffuse bronchiectasis. Multifocal severe bronchial plugging with adjacent findings of bronchitis/bronchopneumonia. Significant recurrent aspiration or Aspergillus should be considered. - improving - continue IV antibiotics and steroids. If worsening condition, consider antifungals or transfer for bronchoscopy Status: Acute (3) COPD (chronic obstructive pulmonary disease): Problem details: - oral steroid burst - outpatient PFTs when done with antibiotics. Will likely need reimaging at that time also - her exacerbation improving with steroids Status: Suspected (4) Hypokalemia: Problem details: -resolved with oral supplementation - Mg level wnl Status: Resolved (5) Anemia: Problem details: - normocytic - iron, B12, folate levels as above; TIBC is notably low, suspect anemia of chronic disease - may need to consider outpatient w/u with colonoscopy and EGD. Consider EGD if melena or acute drop in Hgb. Discuss this with patient and family today. They are aware and I have asked them to establish with an outpatient primary care provider who can help them with this workup and goals of care. Status: Acute (6) Cachexia: Problem details: - suspect underlying chronic issue - will need more work up of CT findings: PET CT, CT abd/pelvis (will do this in a few days since patient just got IVP dye for CTA), and MRI RUQ - nutrition consult pending - Nutrional supplementation Status: Acute (7) Weight loss: Problem details: As above Status: Acute (8) Severe protein-calorie malnutrition: Problem details: As above Status: Acute (9) Lung cyst: Problem details: CT lung findings: There is an irregular cyst in the apex of the right lung that appears to be end-stage saccular bronchiectasis. Cyst wall is relatively thickened / irregular. Could consider a PET-CT to evaluate for malignancy. Status: Acute (10) Liver lesion: Problem details: CT chest: hyperenhancing lesions in the liver. Favor flash filling hemangiomas. Further imaging workup (MR abdomen without and with IV contrast liver mass protocol) should be based on the patient`s risk for primary or metastatic pulmonary malignancy. Status: Acute (11) CKD (chronic kidney disease): Problem details: - suspect CKD, stage unknown at this time. Might be acute renal failure or acute on chronic - Low CVP on ECHO today. Will give IVF bolus and recheck renal function in the morning. Status: Suspected (12) Dehydration: Problem details: - As above Status: Acute (13) Elevated brain natriuretic peptide (BNP) level: Problem details: with dyspnea, hypoxia and cachexia, ECHO complete, appears volume depleted Status: Acute Time Spent With Patient Total time spent: Today I spent 35 minutes seeing the patient, reviewing Expanse and EPIC notes/diagnostics/labs, discussing the care plan with our care team that includes social work, PT/OT, pharmacy, RT, fci and documenting my impressions and plan in the medical record. Subjective Time Seen by Provider: 10:55 Date Seen: 07/31/24 Interval history: Bonita's 2 sons and 2 granddaughters are in the room with her today. She is feeling much better. Her family also notices that she looks much better and she is off oxygen today. She strongly desires to go home soon, but understands and is agreeable to stay. She notes the pain in her right upper thigh has improved with lidocaine patch. Exam Narrative: Exam Narrative: General: No acute distress. Awake alert oriented x3. Cachectic, chronically ill-appearing. Cardiovascular: Regular rate and rhythm. No murmurs, gallops, or rubs. Chest: No increased work of breathing. Coarse, crackles in right lower lung field persist but are slightly better today. Extremities: Severe generalized muscle wasting. No edema, no cyanosis or clubbing. Const: Vital Signs, click to edit/add: Vital Signs - 24 hr 07/30/24 19:00 07/30/24 23:00 07/31/24 01:47 Temperature 97.6 F Pulse Rate 66 Pulse Rate [Left P ulse Oximeter] 99 Respiratory Rate 18 30 H Blood Pressure [Le ft Arm] 93/62 Pulse Oximetry 99 Oxygen Delivery Me thod Oxygen Flow Rate 07/31/24 06:08 07/31/24 06:12 07/31/24 07:00 Temperature 98.0 F Pulse Rate Pulse Rate [Left P ulse Oximeter] 76 67 Respiratory Rate 30 H 30 H 22 Blood Pressure [Le ft Arm] 98/60 93/55 L Pulse Oximetry 94 99 94 Oxygen Delivery Me thod Room Air Nasal Cannula Nasal Cannula Oxygen Flow Rate 1 0.5 07/31/24 07:00 07/31/24 08:51 07/31/24 08:57 Temperature Pulse Rate 62 Pulse Rate [Left P ulse Oximeter] 67 Respiratory Rate 22 22 Blood Pressure [Le ft Arm] Pulse Oximetry 94 Oxygen Delivery Me thod Nasal Cannula Oxygen Flow Rate 0.5 07/31/24 11:35 07/31/24 12:56 Temperature 98.3 F Pulse Rate Pulse Rate [Left P ulse Oximeter] 91 Respiratory Rate 26 H Blood Pressure [Le ft Arm] 97/58 L Pulse Oximetry 95 Oxygen Delivery Me thod Oxygen Flow Rate Labs Labs: Laboratory Results - last 24 hr 07/30/24 07/30/24 07/31/24 10:10 16:27 05:43 WBC 11.68 H RBC 3.22 L Hgb 9.0 L Hct 28.1 L MCV 87 MCH 28 MCHC 32 RDW Coeff of Delphine 13.6 Plt Count 621 H Neut % (Auto) 89.4 H Lymph % (Auto) 5.8 L Randolph % (Auto) 2.2 Eos % (Auto) 0.0 Baso % (Auto) 0.1 Neut # (Auto) 10.40 H Lymph # (Auto) 0.70 L Randolph # (Auto) 0.30 Eos # (Auto) 0.00 Baso # (Auto) 0.00 Abs Immat Gran (auto) 0.30 Imm/Tot Granulo (auto) 2.5 VBG pH 7.459 H VBG pCO2 50 VBG pO2 43.9 VBG HCO3 35 H Sodium 133 L Potassium 4.2 Chloride 93 L Carbon Dioxide 34 H Anion Gap 6 L BUN 23 Creatinine 1.0 Estimated Creat Clear 27.93 Estimated GFR 60 Glucose 116 H Calcium 8.4 Iron 49 51 TIBC 333 172 L % Saturation 15 L 30 C-Reactive Protein 12.8 H Vitamin B12 > 1000 H > 1000 H RBC Fol Berto for Serum Cancelled Lab Acknowledgement Test Added 07/31/2024 echocardiogram: Normal LV size, normal wall thickness, normal function with an estimated EF of 65-70%. Right ventricular cavity size is normal, global systolic RV function is normal. No significant valve disease detected. IVC geometry suggest low CVP.
[2024-07-31] MEDS: 0.9 % SODIUM CHLORIDE 500 ML 500 ML IV (17:00)
[2024-07-31] MEDS: LIDOCAINE 5% PATCH 1 PATCH TRANSDERMA (20:08)
[2024-08-01] VITALS (11 sets, daily range): BP systolic 95–122; BP diastolic 53–76; PULSE 64–99; RESP 20–32; TEMP 36.3–36.6; O2SAT 90–96; BMI 13.1
--- NOTE | 2024-08-01 00:16 | PC.NURSE ---
Pt alert, oriented and vitally stable. Pt is hard of hearing and needs occasional restating. Pt tolerating RA well. Pt Up via SBA, tolerates well. Pt in bed, appears to be resting, call light within reach.
--- NOTE | 2024-08-01 06:00 | CRLHL7_ITS ---
For Patients: As a result of the 21st Century Cures Act, medical imaging exams and procedure reports are released immediately into your electronic medical record. You may view this report before your referring provider. If you have questions, please contact your health care provider. INDICATION: Hyperenhancing liver lesions on chest CT, weight loss, cachexia. COMPARISON: Chest CT 07/30/2024 TECHNIQUE: CT of the abdomen and pelvis with intravenous contrast. Multiplanar axial, coronal, and sagittal reformats were reconstructed. Contrast: 37 mL Isovue 370. FINDINGS: Lung bases: Bibasilar bronchiectasis with distal endobronchial impaction and multifocal irregular patchy opacities and centrilobular nodules in both lung bases. Appear similar to the previous exam. Liver: The hyperenhancing lesion at the dome of the liver in segment 7 is subtle and washed out on portal vein imaging. Measures 1.8 centimeters on series 2, image 18. The other hyperenhancing lesions seen more centrally within the right lobe of the liver previously is not definitively seen on this exam. Hyperenhancing lesion seen in the anterior periphery of segment 5 6 is also not discretely seen on this exam. In the right posterior subcapsular segment 6 there is a 1.6 x 1.1 centimeter irregular hypo enhancing lesion without a definitive correlate on the prior chest CT. There are few other small punctate hypoenhancing lesions in the left lobe of the liver. Additionally there is 1 central right lobe cyst that measures 1.4 cm. The liver is not enlarged or cirrhotic. The hepatic veins and intrahepatic IVC are patent. The main, right, and left portal veins are patent. Hepatic arterial supply is conventional, from the celiac artery. Gallbladder and bile ducts: Hyperdense excreted contrast in the gallbladder lumen. No bile duct dilation. Pancreas: Diffuse pancreatic atrophy. Spleen: Normal spleen size and enhancement. Adrenal glands: Coarse right adrenal calcification appears dystrophic and probably related to remote hemorrhage. Normal left adrenal gland. Kidneys: Normal renal size and position. There is a 1.7 x 2.1 centimeter right renal cyst. There is a smaller 0.8 centimeter right renal cyst. There is a 1 centimeter left renal cyst inferiorly. There is a 0.9 centimeter left renal cyst posteriorly at the mid kidney. There is a 2 centimeter left renal cyst at the upper pole. There several bilateral parenchymal calcifications. There is a 3 millimeter left renal calculus. No urinary tract dilation. Urinary bladder: Normal. Pelvis: The uterus is displaced into the left side of the pelvis. The endometrial cavity appears to be mildly distended are dilated measuring up to 1.1 cm. There is a multilocular right ovarian/adnexal cystic mass that measures 3.7 x 4.0 x 4.7 cm. No left ovarian mass seen. Vessels: Mild atherosclerotic vascular calcifications. No aortic aneurysm. Mesenteric vessels are patent. Bowel: Tiny sliding-type hiatal hernia. No dilated or inflamed small bowel. The colon is diffusely distended with mildly hyperdense liquid stool with scattered air-fluid levels. No colonic wall thickening or unusual enhancement. The appendix is not discretely seen. Lymph nodes: No adenopathy. Peritoneum: No ascites or free air. Abdominal wall: Atrophy of the right abdominal wall musculature. No hernia. Bones: No fractures. No focal worrisome bone lesions. IMPRESSION: 1. Multiple liver lesions are not well characterized on a single phase CT. Liver is not cirrhotic appearing. Recommend MR abdomen without and with IV contrast, liver mass protocol. Alternatively, liver mass protocol CT can be obtained (CT abdomen without and with IV contrast). This should be delayed for at least 24 hours after the most recent administration of contrast. 2. There is a multilocular complex right ovarian cystic mass that measures up to 4.7 centimeters. Malignancy is a possibility. 3. Distended colon with a moderate amount of hyperdense liquid stool with air-fluid levels. No abnormal colonic wall thickening. Please note that all CT scans at this facility use dose modulation, iterative reconstruction, and/or weight-based dosing when appropriate to reduce radiation dose to as low as reasonably achievable. Dictated by Amie Swann MD @ 08/01/2024 6:56:44 AM (Electronically Signed)
[2024-08-01 06:21] LABS: HCO3 VBG 34 mmol/L (21-28); PCO2 VBG 45 mmHG (40-50); PO2 VBG 47.8 mmHG (25-47); pH VBG 7.491 (7.32-7.43)
[2024-08-01 06:29] LABS: Basophils Absolute Auto 0.01 K/uL (0.00-0.30); Basophils Percent Auto 0.1 % (0.0-3.0); Eosinophils Absolute Auto 0.01 K/uL (0.00-0.50); Eosinophils Percent Auto 0.1 % (0.0-7.0); Hematocrit 27.9 % (33.0-51.0); Hemoglobin* 8.9 gm/dL (12.0-16.0); Lymphocytes Percent Auto 9.5 % (20-44); Mean Corpuscular HGB Conc 32 gm/dL (32-36); Mean Corpuscular Hemoglobin 27 pg (26-34); Mean Corpuscular Volume 86 fL (80-100); Monocytes Percent Auto 8.6 % (0.0-11.0); Neutrophils Percent Auto 80.7 % (42.0-72.0); Platelet Count* 597 K/uL (140-440); RDW Coefficient of Variation % 13.7 % (11.5-15.5); Red Blood Count 3.25 m/uL (4.00-5.20); White Blood Count* 9.95 K/uL (4.50-11.00)
[2024-08-01 06:52] LABS: Chloride* 94 mmol/L (96-114); Potassium* 3.6 mmol/L (3.6-5.1); Slide Review Reflex No; Sodium* 133 mmol/L (135-149)
[2024-08-01 06:55] LABS: Est. Creatinine Clearance* 27.86; Estimated Glomerular Filt Rate 60 ml/min
[2024-08-01 06:56] LABS: Anion Gap 6 mEq/L (7-15); Blood Urea Nitrogen* 33 mg/dL (7-30); Calcium* 8.4 mg/dL (8.4-10.6); Carbon Dioxide* 33 mmol/L (20-32); Glucose* 90 mg/dL (60-115)
[2024-08-01 06:59] LABS: C Reactive Protein* 4.9 mg/dL (0.5-1.0)
--- NOTE | 2024-08-01 07:54 | PC.NURSE ---
End of shift [id number] ? RN took over pt care at approximately 2300. Pt alert, oriented, pleasant. Up with standby assistance. Tolerating RA and able to maintain saturation above 92% per MD order. Denies pain. Appears to be resting comfortably at end of shift with call light within reach.
[2024-08-01] MEDS: predniSONE 20 MG TABLET 40 MG PO (07:57)
[2024-08-01] MEDS: DOXYCYCLINE HYCLATE 100 MG PO ×2 (07:57→21:09)
[2024-08-01] MEDS: SODIUM CHLORIDE 0.9 % (FLUSH) 10 ML SYRINGE 5 ML IVF ×2 (07:58→21:09)
[2024-08-01] MEDS: cefTRIAXone 2 GM in 0.9 % SODIUM CHLORIDE Mini-bag 100 ML IVPB (13:58)
--- NOTE | 2024-08-01 18:07 | PM.IMPN1 ---
Progress Note: A&P Assessment and plan (1) Acute hypoxic respiratory failure: Problem details: - hypoxic, slightly hypercapnic - multifactorial: bronchopneumonia and suspect COPD - doing well on room air Status: Acute (2) Bronchopneumonia: Problem details: - CT lung findings: Severe diffuse bronchiectasis. Multifocal severe bronchial plugging with adjacent findings of bronchitis/bronchopneumonia. Significant recurrent aspiration or Aspergillus should be considered. - improving - continue IV antibiotics and steroids. If worsening condition, consider antifungals or transfer for bronchoscopy Status: Acute (3) COPD (chronic obstructive pulmonary disease): Problem details: - oral steroid burst - outpatient PFTs when done with antibiotics. Will likely need reimaging at that time also - exacerbation improving with steroids Status: Suspected (4) Hypokalemia: Problem details: -resolved with oral supplementation - Mg level wnl Status: Resolved (5) Anemia: Problem details: - normocytic - iron, B12, folate levels as above; TIBC is notably low, suspect anemia of chronic disease - may need to consider outpatient w/u with colonoscopy and EGD. Consider EGD if melena or acute drop in Hgb. Discuss this with patient and family today. They are aware and I have asked them to establish with an outpatient primary care provider who can help them with this workup and goals of care. Status: Acute (6) Cachexia: Problem details: - suspect underlying chronic issue - will need more work up of CT findings: PET CT, CT abd/pelvis (will do this in a few days since patient just got IVP dye for CTA), and MRI RUQ - nutrition consult appreciated - Nutrional supplementation Status: Acute (7) Weight loss: Problem details: As above Status: Acute (8) Severe protein-calorie malnutrition: Problem details: As above Status: Acute (9) Lung cyst: Problem details: CT lung findings: There is an irregular cyst in the apex of the right lung that appears to be end-stage saccular bronchiectasis. Cyst wall is relatively thickened / irregular. Could consider a PET-CT to evaluate for malignancy. Status: Acute (10) Liver lesion: Problem details: CT chest: hyperenhancing lesions in the liver. Favor flash filling hemangiomas. Further imaging workup (MR abdomen without and with IV contrast liver mass protocol) should be based on the patient`s risk for primary or metastatic pulmonary malignancy. Status: Acute (11) CKD (chronic kidney disease): Problem details: - suspect CKD, stage unknown at this time. Might be acute renal failure or acute on chronic - Low CVP on ECHO today. Will give IVF bolus and recheck renal function in the morning. - creatinine stable despite IV fluid bolus. Suspect chronic kidney disease stage 4 Status: Suspected (12) Dehydration: Problem details: Resolved Status: Resolved (13) Elevated brain natriuretic peptide (BNP) level: Problem details: with dyspnea, hypoxia and cachexia, ECHO complete, appears volume depleted Status: Acute (14) Ovarian mass: Problem details: multilocular complex right ovarian cystic mass that measures up to 4.7 centimeters. Malignancy is a possibility. - outpatient f/u for goals of care discussion, a PET scan, and further imaging, possible gynecologic referral. Status: Acute Time Spent With Patient Total time spent: Today I spent 40 minutes seeing the patient, talking with family, reviewing [facility] and EPIC notes/diagnostics/labs, discussing the care plan with our care team that includes social work, PT/OT, pharmacy, Nutrition, RT, senior living and documenting my impressions and plan in the medical record. Subjective Time Seen by Provider: 11:10 Date Seen: 08/01/24 Interval history: Bonita feels much better. She notes her appetite is back and she had a BM for the first time in a week. The pain in her right leg has improved and she is walking better. Her family notices the difference as well. We discussed results of CT abd/pelvis and that there is a possibility of ovarian cancer. Family noted that she does not want a colonoscopy and we discussed that with her current level of malnutrition and probable emphasema that she would be a poor candidate for EGD, chemo or surgery. Exam Narrative: Exam Narrative: General: No acute distress. Awake alert oriented x3. Cachectic, chronically ill-appearing. Very [place]. Cardiovascular: Regular rate and rhythm. No murmurs, gallops, or rubs. Chest: No increased work of breathing. Coarse, crackles in right lower lung field are improving. Extremities: Severe generalized muscle wasting. No edema, no cyanosis or clubbing. Const: Vital Signs, click to edit/add: Vital Signs - 24 hr 07/31/24 19:00 08/01/24 00:17 08/01/24 00:17 Temperature 98.1 F 97.7 F Pulse Rate Pulse Rate [Left P ulse Oximeter] 74 99 Respiratory Rate 18 28 H 28 H Blood Pressure [Le ft Arm] 95/60 107/70 Pulse Oximetry 97 92 [facility] 08/01/24 01:16 08/01/24 04:43 08/01/24 07:38 Temperature 97.8 F Pulse Rate 75 69 Pulse Rate [Left P ulse Oximeter] 80 Respiratory Rate 28 H Blood Pressure [Le ft Arm] 108/62 Pulse Oximetry 92 [facility] 08/01/24 07:55 08/01/24 07:55 08/01/24 11:00 Temperature 97.9 F 97.8 F Pulse Rate Pulse Rate [Left P ulse Oximeter] 70 75 Respiratory Rate 32 H 32 H 20 Blood Pressure [Le ft Arm] 95/53 L 120/68 Pulse Oximetry 96 96 [facility] Room Air Room Air 08/01/24 12:00 08/01/24 15:00 08/01/24 15:00 Temperature Pulse Rate Pulse Rate [Left P ulse Oximeter] 86 Respiratory Rate 22 22 Blood Pressure [Le ft Arm] Pulse Oximetry 96 96 [facility] 08/01/24 15:00 Temperature 97.9 F Pulse Rate Pulse Rate [Left P ulse Oximeter] 86 Respiratory Rate 22 Blood Pressure [Le ft Arm] 96/55 L Pulse Oximetry 96 [facility] Labs Labs: Laboratory Results - last 24 hr 08/01/24 06:07 WBC 9.95 RBC 3.25 L Hgb 8.9 L Hct 27.9 L MCV 86 MCH 27 MCHC 32 RDW Coeff of Delphine 13.7 Plt Count 597 H Neut % (Auto) 80.7 H Lymph % (Auto) 9.5 L [place] % (Auto) 8.6 Eos % (Auto) 0.1 Baso % (Auto) 0.1 Neut # (Auto) 8.00 H Lymph # (Auto) 0.90 [place] # (Auto) 0.90 Eos # (Auto) 0.01 Baso # (Auto) 0.01 Abs Immat Gran (auto) 0.10 Imm/Tot Granulo (auto) 1.0 VBG pH 7.491 H VBG pCO2 45 VBG pO2 47.8 H VBG HCO3 34 H Sodium 133 L Potassium 3.6 Chloride 94 L Carbon Dioxide 33 H Anion Gap 6 L BUN 33 H Creatinine 1.0 Estimated Creat Clear 27.86 Estimated GFR 60 Glucose 90 Calcium 8.4 C-Reactive Protein 4.9 H Ordering Physician: Nimo Johnson M.D. Date of Service: 08/01/24 Procedure(s): CT abdomen pelvis w con Accession Number(s): [id number] cc: Nimo Johnson M.D.; Siddharth Berkowitz M.D.~ For Patients: As a result of the Cures Act, medical imaging exams and procedure reports are released immediately into your electronic medical record. You may view this report before your referring provider. If you have questions, please contact your health care provider. INDICATION: Hyperenhancing liver lesions on chest CT, weight loss, cachexia. COMPARISON: Chest CT 07/30/2024 TECHNIQUE: CT of the abdomen and pelvis with intravenous contrast. Multiplanar axial, coronal, and sagittal reformats were reconstructed. Contrast: 37 mL Isovue 370. FINDINGS: Lung bases: Bibasilar bronchiectasis with distal endobronchial impaction and multifocal irregular patchy opacities and centrilobular nodules in both lung bases. Appear similar to the previous exam. Liver: The hyperenhancing lesion at the dome of the liver in segment 7 is subtle and washed out on portal vein imaging. Measures 1.8 centimeters on series 2, image 18. The other hyperenhancing lesions seen more centrally within the right lobe of the liver previously is not definitively seen on this exam. Hyperenhancing lesion seen in the anterior periphery of segment 5 6 is also not discretely seen on this exam. In the right posterior subcapsular segment 6 there is a 1.6 x 1.1 centimeter irregular hypo enhancing lesion without a definitive correlate on the prior chest CT. There are few other small punctate hypoenhancing lesions in the left lobe of the liver. Additionally there is 1 central right lobe cyst that measures 1.4 cm. The liver is not enlarged or cirrhotic. The hepatic veins and intrahepatic IVC are patent. The main, right, and left portal veins are patent. Hepatic arterial supply is conventional, from the celiac artery. Gallbladder and bile ducts: Hyperdense excreted contrast in the gallbladder lumen. No bile duct dilation. Pancreas: Diffuse pancreatic atrophy. Spleen: Normal spleen size and enhancement. Adrenal glands: Coarse right adrenal calcification appears dystrophic and probably related to remote hemorrhage. Normal left adrenal gland. Kidneys: Normal renal size and position. There is a 1.7 x 2.1 centimeter right renal cyst. There is a smaller 0.8 centimeter right renal cyst. There is a 1 centimeter left renal cyst inferiorly. There is a 0.9 centimeter left renal cyst posteriorly at the mid kidney. There is a 2 centimeter left renal cyst at the upper pole. There several bilateral parenchymal calcifications. There is a 3 millimeter left renal calculus. No urinary tract dilation. Urinary bladder: Normal. Pelvis: The uterus is displaced into the left side of the pelvis. The endometrial cavity appears to be mildly distended are dilated measuring up to 1.1 cm. There is a multilocular right ovarian/adnexal cystic mass that measures 3.7 x 4.0 x 4.7 cm. No left ovarian mass seen. Vessels: Mild atherosclerotic vascular calcifications. No aortic aneurysm. Mesenteric vessels are patent. Bowel: Tiny sliding-type hiatal hernia. No dilated or inflamed small bowel. The colon is diffusely distended with mildly hyperdense liquid stool with scattered air-fluid levels. No colonic wall thickening or unusual enhancement. The appendix is not discretely seen. Lymph nodes: No adenopathy. Peritoneum: No ascites or free air. Abdominal wall: Atrophy of the right abdominal wall musculature. No hernia. Bones: No fractures. No focal worrisome bone lesions. IMPRESSION: 1. Multiple liver lesions are not well characterized on a single phase CT. Liver is not cirrhotic appearing. Recommend MR abdomen without and with IV contrast, liver mass protocol. Alternatively, liver mass protocol CT can be obtained (CT abdomen without and with IV contrast). This should be delayed for at least 24 hours after the most recent administration of contrast. 2. There is a multilocular complex right ovarian cystic mass that measures up to 4.7 centimeters. Malignancy is a possibility. 3. Distended colon with a moderate amount of hyperdense liquid stool with air-fluid levels. No abnormal colonic wall thickening. Please note that all CT scans at this facility use dose modulation, iterative reconstruction, and/or weight-based dosing when appropriate to reduce radiation dose to as low as reasonably achievable. Dictated by Amie Swann MD @ 08/01/2024 6:56:44 AM (Electronically Signed)
[2024-08-02 03:30] VITALS: BP 90/57; PULSE 64; RESP 20; TEMP 36.4; O2SAT 95
--- NOTE | 2024-08-02 05:15 | PC.NURSE ---
Pt alert and oriented x3. Afebrile. Pt?has intermittent cough. Pt reports occasional thin clear sputum with cough. Pt lung sounds are diminished. Pt denies pain, SOB, and N/V. Pt is up?SBA with gait belt, voiding, and tolerating a regular diet.??
[2024-08-02 07:00] VITALS: BP 94/61; PULSE 64; PULSE 85; RESP 18; TEMP 36.4; O2SAT 97
[2024-08-02] MEDS: predniSONE 20 MG TABLET 40 MG PO (07:34)
--- NOTE | 2024-08-02 09:35 | PM.DS1 ---
DS: Providers Provider Time Seen by Provider: 08:15 Date Seen: 08/02/24 Date of admission: 07/30/24 12:56 Primary care physician: Siddharth Berkowitz MD Admitting Clinician: Nimo Johnson MD Consults: 07/30/24 12:56 Consult to Nutrition [CONS] Routine Comment: Reason for consult:: Weight Loss Consult to Occupational Therapy [CONS] Routine Comment: Reason(s) for OT Consult:: Evaluate and Treat Any Restrictions?:: No Restrictions Consult to Physical Therapy [CONS] Routine Comment: Reason(s) for PT Consult:: Evaluate and Treat Any Restrictions?:: No Restrictions Consult to Descriptive Catalog Librarian [CONS] Routine Comment: Reason for Consult:: Discharge Planning Needs Attending Physician on discharge: Nimo Johnson MD Date of Discharge: 08/02/24 DS: Diagnosis Discharge Diagnosis (1) Acute hypoxic respiratory failure: Status: Resolved Problem details: - hypoxic, slightly hypercapnic - multifactorial: bronchopneumonia and suspect COPD - doing well on room air (2) Bronchopneumonia: Status: Acute Problem details: - CT lung findings: Severe diffuse bronchiectasis. Multifocal severe bronchial plugging with adjacent findings of bronchitis/bronchopneumonia. Significant recurrent aspiration or Aspergillus should be considered. - improving - 08/01 continue IV antibiotics and steroids. If worsening condition, consider antifungals or transfer for bronchoscopy - 08/02 improving, afebrile, RR improved. d/c home on oral antibiotics (3) Ovarian mass: Status: Acute Problem details: multilocular complex right ovarian cystic mass that measures up to 4.7 centimeters. Malignancy is a possibility. - outpatient f/u for goals of care discussion, a PET scan, and further imaging, possible gynecologic referral. (4) Cachexia: Status: Acute Problem details: - suspect underlying chronic issue - will need more work up of CT findings: PET CT, CT abd/pelvis (will do this in a few days since patient just got IVP dye for CTA), and MRI RUQ - nutrition consult appreciated - Nutrional supplementation (5) Weight loss: Status: Acute Problem details: As above (6) Severe protein-calorie malnutrition: Status: Acute Problem details: As above (7) COPD (chronic obstructive pulmonary disease): Status: Suspected Problem details: - oral steroid burst - outpatient PFTs when done with antibiotics. Will likely need reimaging at that time also - exacerbation improving with steroids, will give prescription to complete total of 5 days - PCP could consider outpatient referral to pulmonology (8) Elevated brain natriuretic peptide (BNP) level: Status: Acute Problem details: with dyspnea, hypoxia and cachexia, appeared volume depleted on admission, ECHO complete (9) CKD (chronic kidney disease): Status: Suspected Problem details: - suspect CKD, stage unknown at this time. Might be acute renal failure or acute on chronic - Low CVP on ECHO today. Will give IVF bolus and recheck renal function in the morning. - creatinine stable despite IV fluid bolus. Suspect chronic kidney disease stage 4 (10) Liver lesion: Status: Acute Problem details: CT chest: hyperenhancing lesions in the liver. Favor flash filling hemangiomas. Further imaging workup (MR abdomen without and with IV contrast liver mass protocol) should be based on the patient`s risk for primary or metastatic pulmonary malignancy. (11) Lung cyst: Status: Acute Problem details: CT lung findings: There is an irregular cyst in the apex of the right lung that appears to be end-stage saccular bronchiectasis. Cyst wall is relatively thickened / irregular. Could consider a PET-CT to evaluate for malignancy. (12) Anemia: Status: Acute Problem details: - normocytic - iron, B12, folate levels as above; TIBC is notably low, suspect anemia of chronic disease - may need to consider outpatient w/u with colonoscopy and EGD. Consider EGD if melena or acute drop in Hgb. Discuss this with patient and family today. Patient declines colonoscopy. They are aware and I have asked them to establish with an outpatient primary care provider who can help them with this workup and goals of care. (13) Dehydration: Status: Resolved Problem details: Resolved (14) Hypokalemia: Status: Resolved Problem details: -resolved with oral supplementation - Mg level wnl DS: Summary Hospital Course Hospital Course: Shanita Little is a 74 year old female who hasn't been to the doctor in many years who is brought in by her family for cough, illness for 1 month, shortness of breath, weakness, anorexia, and weight loss. She lives with her , her son and his daughter. She is independent and had been going out to shop, occassionally driving herself up until a few months ago. She has always been thin, about 70-100 lbs, according to her son, Humphrey, who is with her today, but she started eating less and has lost about 25 lbs over the last few months. About a month ago she came down with something that caused a wet, junky cough. Other people in the house were sick with something similar, but her illness never went away. She continued to cough and lose weight. She stopped going to the store because of weakness. She also notes pain in her anterior right leg for a few months. She is a lifelong nonsmoker. She denies hemoptysis or CP. She has no personal or family h/o cancer. Bonita has improved on IV antibiotics. Respiratory failure has resolved. Nutrition consult complete. I have asked her to establish with a PCP for further evaluation and f/u of anemia and malnutrition. She is unsure if she wants further w/u. If she wishes to pursue further w/u, please see detailed recommendations on problem list above. She is improved in stable condition. Time Spent with Patient Time attestation: Total time spent providing and/or coordinating discharge services: Today I spent 35 seeing the patient, reviewing [facility] and EPIC notes/diagnostics/labs, discussing the care plan with our care team that includes social work, PT/OT, pharmacy, RT, residential, documenting my impressions, and completing discharge orders. Exam Narrative: Exam Narrative: General: No acute distress. Awake alert oriented x3. Cachectic, chronically ill-appearing. Very [place]. Cardiovascular: Regular rate and rhythm. No murmurs, gallops, or rubs. Chest: No increased work of breathing. Clear to auscultation bilaterally. Abdomen: Soft, nondistended, nontender to palpation. Extremities: Severe generalized muscle wasting. No edema, no cyanosis or clubbing. Const: Vital Signs, click to edit/add: Vital Signs - 24 hr 08/01/24 11:00 08/01/24 12:00 08/01/24 15:00 Temperature 97.8 F Pulse Rate Pulse Rate [Left P ulse Oximeter] 75 86 Respiratory Rate 20 22 Blood Pressure [Le ft Arm] 120/68 Pulse Oximetry 96 96 Oxygen Delivery Me thod Room Air 08/01/24 15:00 08/01/24 15:00 08/01/24 19:58 Temperature 97.9 F 97.4 F L Pulse Rate Pulse Rate [Left P ulse Oximeter] 86 74 Respiratory Rate 22 22 20 Blood Pressure [Le ft Arm] 96/55 L 122/76 Pulse Oximetry 96 96 90 Oxygen Delivery Me thod Room Air Room Air Room Air 08/01/24 22:54 08/01/24 22:58 08/01/24 22:58 Temperature 97.3 F L Pulse Rate 64 Pulse Rate [Left P ulse Oximeter] 74 74 Respiratory Rate 20 Blood Pressure [Le ft Arm] 102/73 Pulse Oximetry 94 Oxygen Delivery Me thod Room Air 08/01/24 22:58 08/02/24 03:30 08/02/24 07:00 Temperature 97.6 F Pulse Rate 64 Pulse Rate [Left P ulse Oximeter] 64 Respiratory Rate 20 20 Blood Pressure [Le ft Arm] 90/57 L Pulse Oximetry 94 95 Oxygen Delivery Me thod Room Air Room Air 08/02/24 07:00 08/02/24 07:00 08/02/24 07:00 Temperature 97.6 F Pulse Rate Pulse Rate [Left P ulse Oximeter] 85 85 Respiratory Rate 18 18 18 Blood Pressure [Le ft Arm] 94/61 Pulse Oximetry 97 97 Oxygen Delivery Me thod Room Air Room Air DS: Data Data Completed and Pending Completed studies during hospitalization: 07/30/2024 EKG: Sinus tachycardia with premature atrial complexes, 114 beats per minute. Biatrial enlargement. ST and T-wave abnormality, consider inferior ischemia and anterolateral ischemia. 07/31/2024 echocardiogram: Normal LV size, normal wall thickness, normal function with an estimated EF of 65-70%. Right ventricular cavity size is normal, global systolic RV function is normal. No significant valve disease detected. IVC geometry suggest low CVP. Ordering Physician: Eusebio Vaughn M.D. Date of Service: 07/30/24 Procedure(s): XR chest 2V Accession Number(s): [id number] cc: Eusebio Vaughn M.D.; Siddharth Berkowitz M.D.~ For Patients: As a result of the Century Cures Act, medical imaging exams and procedure reports are released immediately into your electronic medical record. You may view this report before your referring provider. If you have questions, please contact your health care provider. INDICATION: Short of breath and weakness COMPARISON: None. TECHNIQUE: PA and lateral 2 view chest. FINDINGS: Lung volumes are normal without substantial hyperinflation. Cystic versus bronchiectatic change throughout. There are peribronchiolar and patchy opacities. No large focal consolidation. No pulmonary edema. No pleural effusion. No pneumothorax. No pneumomediastinum. Normal cardiomediastinal silhouette. Bones: Normal for age. IMPRESSION: Suspect emphysema and bronchitis/bronchopneumonia. Underlying other causes of bronchiectasis or cystic lung disease can also be considered. Dictated by Amie Swann MD @ 07/30/2024 10:47:54 AM (Electronically Signed) Ordering Physician: Eusebio Vaughn M.D. Date of Service: 07/30/24 Procedure(s): CT angio chest PE protocol Accession Number(s): [id number] cc: Eusebio Vaughn M.D.; Siddharth Berkowitz M.D.~ For Patients: As a result of the Cures Act, medical imaging exams and procedure reports are released immediately into your electronic medical record. You may view this report before your referring provider. If you have questions, please contact your health care provider. INDICATION: Short of breath. COMPARISON: Radiograph 07/30/2024 TECHNIQUE: CT angiogram chest with contrast, pulmonary embolism protocol. Multiplanar axial, coronal, and sagittal reformats are included. MIP images to improve detection of pulmonary emboli are included. Intravenous contrast: 95 mL Isovue 370 FINDINGS: PE: Well-timed contrast bolus. No pulmonary emboli. Normal caliber main pulmonary artery. Normal sized right heart chambers. No reflux of contrast below the diaphragm. Airway: Distal endotracheal debris. There is diffuse bronchiectasis with multifocal bronchial plugging and multiple finger in glove like endobronchial opacities. Lungs: Multifocal patchy opacities without a dominant nodule or mass. There is irregular cystic change at the right lung apex with a thick irregular wall and significant adjacent bronchiectasis. Appears to be saccular end-stage bronchiectasis in the apex. No focal consolidation/large pneumonia.. No significant emphysema. No pulmonary edema. Pleura: No pleural effusion. No pneumothorax. Lymph nodes: No thoracic adenopathy. Mediastinum: No pneumomediastinum. No mass. Heart and great vessels: No pericardial effusion. Normal cardiac chamber size. Scattered atherosclerotic plaques. No aortic aneurysm. Chest wall: Very little subcutaneous or visceral fat. Upper abdomen: There is a 1.7 centimeter arterially hyperenhancing lesion in the dome of the right diaphragm. There is a smaller similar lesion that measures 9 millimeters in the midportion of the right diaphragm. There is a low-density/cysts in the central liver lesion that measures 1.6 centimeters. There is an arterially hyperenhancing subcapsular lesion in the right inferior lobe of the liver that measures 0.5 cm. Dystrophic right adrenal calcification. Bones: No fractures. No focal bone lesions. IMPRESSION: 1. Severe diffuse bronchiectasis. Multifocal severe bronchial plugging with adjacent findings of bronchitis/bronchopneumonia. Significant recurrent aspiration or Aspergillus should be considered. 2. There is an irregular cyst in the apex of the right lung that appears to be end-stage saccular bronchiectasis. Cyst wall is relatively thickened / irregular. Could consider a PET-CT to evaluate for malignancy. 3. No pulmonary embolism. 4. There several arterially hyperenhancing lesions in the liver. Favor flash filling hemangiomas. Further imaging workup (MR abdomen without and with IV contrast liver mass protocol) should be based on the patient`s risk for primary or metastatic pulmonary malignancy. Please note that all CT scans at this facility use dose modulation, iterative reconstruction, and/or weight-based dosing when appropriate to reduce radiation dose to as low as reasonably achievable. Dictated by Amie Swann MD @ 07/30/2024 11:34:27 AM (Electronically Signed) Discharge Plan Discharge Disposition: Home, Self-Care Date of Admission: 07/30/24 12:56 Attending Provider on Discharge: Nimo Johnson Primary Care Provider: Siddharth Berkowitz Condition: Improved Anticipated Discharge Date/Time: 08/02/24 09:58 Discharge Medications: New doxycycline hyclate 100 mg Tablet 100 mg PO BID 5 Days Qty: 10 0RF prednisone 20 mg Tablet 40 mg PO DAILYWM 1 Days Qty: 2 0RF cefdinir 300 mg capsule 300 mg PO BID Qty: 10 0RF lidocaine 5 % adhesive patch,medicated 1 patch topical DAILY Qty: 30 0RF Rx Instructions: leave on most painful area (right anterior thigh) for up to 12 hrs No Action No Known Home Medications Discharge Orders: Discharge Order (Routine); Ordered 08/02/24 Ordered By: Nimo Johnson Patient Education: Doxycycline (By mouth), Prednisone (By mouth), Lidocaine (On the skin), Cefdinir (By mouth), Pneumonia (DC) Activity Level: Activity as Tolerated Discharge Diet: High Protein/High Calorie Diet Detail: Nutritional supplements three times a day Follow Up Appointments: Siddharth Berkowitz MD [Primary Care Provider] - (7-10 days, CBC with diff, BMP) Forms: MyHealth Info Instructions
[2024-08-02] MEDS: DOXYCYCLINE HYCLATE 100 MG PO (10:25)
--- NOTE | 2024-08-02 10:41 | PC.NURSE ---
Discharge: patient alert and oriented. SBA to BR. Protein shake offered and patient had a few sips. VSS. RA. Afebrile this shift. IV removed intact. Patient discharged today at 1030 to home accompanied by spouse. Discharge instructions given and signed. patient verbalized understanding of instructions. Patients belongings sheet signed.
[2024-08-02 14:41] LABS: Folate, Serum 9.1 ng/mL (>=5.9)
== END 2024-08-02 10:30 | disposition home or self-care (01) | DRG 193 ==
LOC: ED 11:44 → MEDSURG 12:43
PROVIDERS: Admitting Provider Family Medicine; Emergency Provider Family Medicine; PCP Family Medicine; Visit Provider Family Medicine
DX: J18.0 Bronchopneumonia, unspecified organism (principal); E43 Unspecified severe protein-calorie malnutrition; J96.02 Acute respiratory failure with hypercapnia; J96.01 Acute respiratory failure with hypoxia; J44.1 Chronic obstructive pulmonary disease with (acute) exacerbation; J47.0 Bronchiectasis with acute lower respiratory infection; Z68.1 Body mass index [BMI] 19.9 or less, adult; E87.6 Hypokalemia; E86.0 Dehydration; E88.A Wasting disease (syndrome) due to underlying condition; D64.9 Anemia, unspecified; R00.0 Tachycardia, unspecified; J98.4 Other disorders of lung; R79.89 Other specified abnormal findings of blood chemistry; R63.4 Abnormal weight loss; N18.9 Chronic kidney disease, unspecified; K76.9 Liver disease, unspecified; D39.11 Neoplasm of uncertain behavior of right ovary
CPT/HCPCS: 36415; 71046; 71275; 74177; 80048; 80076; 82607; 82746; 82803; 83540; 83550; 83735; 83880; 84145; 84484; 85025; 85379; 85610; 85730; 86140; 87631; 93306; 94664; 94761; 97116; 97162; 97165; 97530; 97535; 99285; A9270; J0696; J2543; J3480; J7030; J7512; Q9967